=== PATIENT | male | born 1990 | race African-American/Black ===

== ENCOUNTER 2017-02-15 08:05 | Emergency (ER) | payer OTHER ==
[~2017-02-15 08:05] MED LIST: CLEOCIN HCL300 M1 PO; ERYTHROMYCIN O3.5 GM OD; FLEXERIL PO; IMODIUM2 MG PO; KETOPROFEN PO; LORTAB 5/500 TA1 TA1 PO; NAPROSYN500 MG PO; NO MEDICATIONS; PHENERGAN25 M1 PO; ULTRAM PO; VICODIN 5/500 T1 TAB PO; ZITHROMAX PO
[2017-02-15 08:31] LABS: URINE SOURCE CLEAN CATCH
[2017-02-15 08:33] LABS: URINE APPEARANCE CLEAR; URINE BILIRUBIN NEG (NEG); URINE BLOOD NEG (NEG); URINE COLOR YELLOW; URINE GLUCOSE NEG (NORM); URINE KETONE 1+ (NEG); URINE LEUKOCYTE ESTERASE NEG (NEG); URINE NITRATE NEG (NEG); URINE PH 6.5 (5-8); URINE PROTEIN TRACE (NEG); URINE SPECIFIC GRAVITY 1.025 (1.003-1.035)
[2017-02-15 08:37] LABS: BASOPHIL% 0.3 % (0-2.5); EOSINOPHIL% 0.5 % (0.0-7.0); HEMATOCRIT 50.5 % (38.0-50.0); HEMOGLOBIN 16.8 gm/dL (13.0-16.0); LYMPHOCYTE# 2.5 X10e3 (1.0-3.5); LYMPHOCYTE% 29.7 % (17.0-45.0); MEAN CELL VOLUME 90.2 FL (83-96); MEAN CORPUSCULAR HGB CONC 33.2 g/dL (30-36); MEAN PLATELET VOLUME 8.1 FL (6.5-11.5); MONOCYTE# 0.6 X10e3 (0-1.0); MONOCYTE% 7.3 % (3.0-12.0); NEUTROPHIL# 5.2 X10e3 (1.5-7.1); NEUTROPHIL% 62.2 % (40-75); PLATELET COUNT 353 X10e3 (140-420); RED BLOOD COUNT 5.59 X10e (3.90-5.60); RED CELL DISTRIBUTION WIDTH 12.8 % (11.0-15.5); WHITE BLOOD COUNT 8.4 X10e3 (4.0-10.5)
[2017-02-15 08:45] LABS: DIFF IND NO
[2017-02-15 08:47] LABS: MICRO INDICATED? YES
[2017-02-15 08:50] LABS: CULTURE INDICATED? YES; URINE BACTERIA 1+ (NEG); URINE GRANULAR CAST 0-2 /[HPF]; URINE HYALINE CAST 0-2 /[HPF]; URINE MUCUS PRESENT; URINE RBC 0-2 /[HPF] (0-2); URINE SQUAMOUS EPITHELIAL CELL FEW /[HPF]; URINE WBC 0-2 /[HPF] (0-5); URINE WHITE BLOOD CELL CAST 0-2 /[HPF]
[2017-02-15 08:57] LABS: INFLUENZA A NEG (NEG); INFLUENZA B NEG (NEG)
[2017-02-15 08:59] LABS: ALBUMIN SERUM 5.3 g/dL (3.5-5.0); BILIRUBIN, DIRECT 0.2 mg/dL (0.0-0.2); BILIRUBIN,INDIRECT 1.3 mg/dL (0.0-0.9); BILIRUBIN,TOTAL 1.5 mg/dL (0.2-2.0); CALCIUM SERUM 10.1 mg/dL (8.4-10.2); POTASSIUM 3.7 mmol/L (3.5-5.1); PROTEIN TOTAL SERUM 9.1 g/dL (6.0-8.3)
== END 2017-02-15 09:27 | disposition home or self-care (01) ==
LOC: SED 08:05
PROVIDERS: Emergency Medicine
DX: E86.0 Dehydration (principal); R10.9 Unspecified abdominal pain; I10 Essential (primary) hypertension
CPT/HCPCS: 36415; 80048; 80076; 81003; 82150; 83690; 85025; 87086; 87804; 96361; 96374; 96375; 99284; J1885; J2405